=== PATIENT | female | born 1970 | race Asian ===

== ENCOUNTER 2019-04-14 03:41 | Emergency (ER) | payer BC ==
[~2019-04-14] VITALS: Ht 170.2 cm; Wt 62.1 kg
[2019-04-14 03:54] VITALS: Ht 170.2 cm; Wt 62.1 kg
[2019-04-14 04:41] VITALS: BP 133/70
== END 2019-04-14 04:41 | disposition home or self-care (01) ==
LOC: ED 03:41
DX: I10 Essential (primary) hypertension (principal)

== ENCOUNTER 2019-06-01 14:35 | Emergency (ER) | payer BC ==
[~2019-06-01] VITALS: Ht 170.2 cm; Wt 63.0 kg
[2019-06-01 14:50] VITALS: Ht 170.2 cm; Wt 63.0 kg
[2019-06-01 16:34] LABS: BASOPHIL % 0.8 % (0-2); PLATELET COUNT 268 x10^3mcL (130-400)
[2019-06-01 16:35] LABS: RED CELL DISTRIBUTION WIDTH 15.3 % (11.5-14.5)
[2019-06-01 17:01] LABS: ALBUMIN 4.3 g/dL (3.4-5.0); ALKALINE PHOSPHATASE 51 U/L (46-116); ALT/SGPT 28 U/L (14-59); AST/SGOT 23 U/L (15-37); BILIRUBIN TOTAL 0.5 mg/dL (0.20-1.00); CALCIUM 9.6 mg/dL (8.5-10.1); CARBON DIOXIDE 22.3 mmol/L (21-32); CHLORIDE SERUM 102 mmol/L (98-107); CREATININE SERUM 0.8 mg/dL (0.6-1.0); GFR1 > 60 mL/min; GLUCOSE SERUM 110 mg/dL (74-106); SODIUM SERUM 139 mmol/L (136-145); T4(THYROXINE) 7.9 ug/dL (4.7-13.3); TOTAL PROTEIN, SERUM 8.2 g/dL (6.4-8.2)
[2019-06-01 17:03] LABS: POTASSIUM SERUM 2.9 mmol/L (3.5-5.1)
[2019-06-01 18:40] LABS: UA SPECIFIC GRAVITY <=1.005 (1.005-1.035); microscopic required? YES; urine erythrocyte TRACE (NEGATIVE)
[2019-06-01 19:20] VITALS: BP 149/65
== END 2019-06-01 19:20 | disposition home or self-care (01) ==
LOC: ED 14:35
PROVIDERS: Emergency Medicine
DX: R06.4 Hyperventilation (principal); E87.6 Hypokalemia
CPT/HCPCS: 36415